=== PATIENT | male | born 1985 | race Caucasian/White ===

== ENCOUNTER 2018-01-18 21:46 | Emergency (ER) | payer SELFPAY ==
[~2018-01-18] VITALS: Ht 190.5 cm; Wt 113.4 kg
[2018-01-18 21:55] VITALS: BP 160/97
[2018-01-18] MEDS ORDERED: CEPH-264 PO (22:14)
--- NOTE | 2018-01-18 22:16 | PHYS DOC ---
Adult General Chief Complaint Chief Complaint Left arm redness [facility] HPI Upper arm redness swelling minimal tenderness size about 5 x 5 cm for 3 days Review of Systems Review of Systems Constitutional: Denies fever or chills [] Eyes: Denies change in visual acuity, redness, or eye pain [] HENT: Denies nasal congestion or sore throat [] Respiratory: Denies cough or shortness of breath [] Cardiovascular: No additional information not addressed in HPI [] GI: Denies abdominal pain, nausea, vomiting, bloody stools or diarrhea [] : Denies dysuria or hematuria [] Musculoskeletal: Denies back pain or joint pain [] Integument: Denies rash or skin lesions [] Neurologic: Denies headache, focal weakness or sensory changes [] Endocrine: Denies polyuria or polydipsia [] All other systems were reviewed and found to be within normal limits, except as documented in this note. Allergies Allergies Allergies Coded Allergies Type Severity Reaction Last Updated Verified No Known Allergies Allergy Unknown 01/18/18 Yes Physical Exam Physical Exam Constitutional: Well developed, well nourished, no acute distress, non-toxic appearance. [] HENT: Normocephalic, atraumatic, bilateral external ears normal, oropharynx moist, no oral exudates, nose normal. [] Eyes: PERRLA, EOMI, conjunctiva normal, no discharge. [] Neck: Normal range of motion, no tenderness, supple, no stridor. [] Cardiovascular:Heart rate regular rhythm, no murmur [] Lungs & Thorax: Bilateral breath sounds clear to auscultation [] Abdomen: Bowel sounds normal, soft, no tenderness, no masses, no pulsatile masses. [] Skin: 55 cm erythema tenderness on upper arm Back: No tenderness, no CVA tenderness. [] Extremities: No tenderness, no cyanosis, no clubbing, ROM intact, no edema. [] Neurologic: Alert and oriented X 3, normal motor function, normal sensory function, no focal deficits noted. [] Psychologic: Affect normal, judgement normal, mood normal. [] Current Patient Data Vital Signs Vital Signs Date Time Temp Pulse Resp B/P (MAP) Pulse Ox O2 Delivery O2 Flow Rate FiO2 01/18/18 21:55 98.0 110 20 99 Room Air EKG EKG [] Radiology/Procedures Radiology/Procedures [] Course & Med Decision Making Course & Med Decision Making Pertinent Labs and Imaging studies reviewed. (See chart for details) [] Final Impression Final Impression [] Problems: (1) Cellulitis Qualifiers: Qualified Codes: L03.114 - Cellulitis of left upper limb Dragon Disclaimer Dragon Disclaimer This electronic medical record was generated, in whole or in part, using a voice recognition dictation system. RAY FOX MD Jan 18, 2018 22:16
== END 2018-01-18 22:20 | disposition home or self-care (01) ==
LOC: ER 22:19
DX: L03.114 Cellulitis of left upper limb (principal)
CPT/HCPCS: 99283

== ENCOUNTER 2018-07-21 16:12 | Emergency (ER) | payer SELFPAY ==
[~2018-07-21] VITALS: Ht 190.5 cm; Wt 125.3 kg
[2018-07-21 16:12] VITALS: BP 153/80
[~2018-07-21 16:12] MED LIST: CEPH-264 PO
[2018-07-21] MEDS ORDERED: MELO7.5T29 PO (16:34)
[2018-07-21] MEDS ORDERED: SULF1TAB24 PO (16:34)
[2018-07-21] MEDS ORDERED: TRAM50TA PO (16:34)
--- NOTE | 2018-07-21 16:34 | PHYS DOC ---
Past History Past Medical History: No Pertinent History Past Surgical History: No Surgical History Smoking: Cigarettes Alcohol Use: None Drug Use: None Adult General Chief Complaint Chief Complaint: ABSCESS HPI HPI Patient is a 32-year-old male presents with right facial pain and swelling that has been present for approximately the past day and has been getting worse over time. No fever. No trauma. No recent changes in weight. No drainage from the area. No nausea or vomiting. Palpation makes it worse. Nothing makes it better. No home pain medicines of been taken. No previous history of this. [] Review of Systems Review of Systems Constitutional: Denies fever or chills [] Eyes: Denies change in visual acuity, redness, or eye pain [] HENT: Denies nasal congestion or sore throat [] Respiratory: Denies cough or shortness of breath [] Cardiovascular: No chest pain or palpitations[] GI: Denies abdominal pain, nausea, vomiting, bloody stools or diarrhea [] : Denies dysuria or hematuria [] Musculoskeletal: Denies back pain or joint pain [] Integument: See history of present illness. He also notes these had an area on the back of his right calf that is been present for years that has not healed well, has repeated episodes where it seems to be healing, starts itching, he scratches it gets worse.[] Neurologic: Denies headache, focal weakness or sensory changes [] Endocrine: Denies polyuria or polydipsia [] All other systems were reviewed and found to be within normal limits, except as documented in this note. Allergies Allergies Allergies Coded Allergies Type Severity Reaction Last Updated Verified No Known Allergies Allergy Unknown 01/18/18 Yes Physical Exam Physical Exam Constitutional: Well developed, well nourished, no acute distress, non-toxic appearance. [] HENT: Normocephalic, atraumatic, there is tenderness and swelling over the right face, within his jacome line. There is no palpable fluctuant abscess. There is no cutaneous abscess noted. Your canal is normal, TM is clear. Bilateral external ears normal, oropharynx moist, no oral exudates, nose normal. [] Eyes: PERRLA, EOMI, conjunctiva normal, no discharge. [] Neck: Normal range of motion, no tenderness, supple, no stridor. [] Cardiovascular:Heart rate regular rhythm, no murmur [] Lungs & Thorax: Bilateral breath sounds clear to auscultation [] Abdomen: Not examined[] Skin: Warm, dry, no erythema, no rash. Right posterior calf has a 1/2 inch diameter area of scabbing, mild erythema, no purulent drainage. [] Back: No tenderness, no CVA tenderness. [] Extremities: Other than the right calf, no tenderness, no cyanosis, no clubbing, ROM intact, no edema. [] Neurologic: Alert and oriented X 3, normal motor function, normal sensory function, no focal deficits noted. [] Psychologic: Affect normal, judgement normal, mood normal. [] EKG EKG [] Radiology/Procedures Radiology/Procedures [] Course & Med Decision Making Course & Med Decision Making Pertinent Labs and Imaging studies reviewed. (See chart for details) Medical decision making: This appears to be cellulitis, no evidence of an abscess of the face. No evidence of deeper bony infection. Right calf appears to be a poorly healing wound, possibly due to patient's tobacco use. There is no evidence of an infection. Given the length of time, doubt that this is specifically a skin cancer however that can be followed up as an outpatient. Will start patient on oral antibiotics, discussed wound care with the patient for his calf.[] Dragon Disclaimer Dragon Disclaimer This electronic medical record was generated, in whole or in part, using a voice recognition dictation system. Departure Departure: Impression: Primary Impression: Facial cellulitis Additional Impression: Calf abrasion Disposition: 01 HOME, SELF-CARE Condition: IMPROVED Referrals: PCP,NO (PCP) Patient Instructions: Cellulitis, Wound Care, Ytyl-qy-Tyab Additional Instructions: Keep the wounds clean, cover the calf wound with a dressing. Take the medication as prescribed. Follow-up with your regular doctor in 2 days. If you do not have regular doctor, a list of local clinics will be provided for you. Return to the ER if worsening pain, fever of more than 101, or any other concerns. Scripts Tramadol Hcl (TRAMADOL HCL) 50 Mg Tablet 50 MG PO PRN Q6HRS PRN for PAIN, #20 TAB Prov: LAURA SALDIVAR DO 07/21/18 Meloxicam (MELOXICAM) 7.5 Mg Tablet 7.5 MG PO DAILY for PAIN, #20 TAB Prov: LAURA SALDIVAR DO 07/21/18 Sulfamethoxazole/Trimethoprim (BACTRIM DS TABLET) 1 Each Tablet 1 TAB PO BID for skin infection, #20 TAB Prov: LAURA SALDIVAR DO 07/21/18 Problem Qualifiers Additional Impression: Calf abrasion Encounter type: initial encounter Laterality: right Qualified Codes: S80.811A - Abrasion, right lower leg, initial encounter LAURA SALDIVAR DO July 21, 2018 16:34
== END 2018-07-21 16:40 | disposition home or self-care (01) ==
LOC: ER 16:12
DX: L03.211 Cellulitis of face (principal); S80.811A Abrasion, right lower leg, initial encounter; F17.210 Nicotine dependence, cigarettes, uncomplicated; X58.XXXA Exposure to other specified factors, initial encounter; Y93.89 Activity, other specified; Y92.89 Other specified places as the place of occurrence of the external cause; Y99.8 Other external cause status
CPT/HCPCS: 99283

== ENCOUNTER 2019-05-06 04:00 | Emergency (ER) | payer SELFPAY ==
[~2019-05-06] VITALS: Ht 190.5 cm; Wt 122.5 kg
[2019-05-06 04:00] VITALS: BP 160/80
[~2019-05-06 04:00] MED LIST changes: +MELO7.5T29 PO; +SULF1TAB24 PO; +TRAM50TA PO
[2019-05-06] MEDS ORDERED: KETOROLAC 30 MG/ML VIAL. IM ONE (04:30)
[2019-05-06] MEDS ORDERED: KETOROLAC 30 MG/ML VIAL. ONE (04:34)
[2019-05-06] MEDS ORDERED: NAPR-695 PO (04:34)
[2019-05-06] MEDS ORDERED: HYDR-3165 PO (04:34)
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
== END 2019-05-06 04:46 | disposition home or self-care (01) ==
LOC: ER 04:00
DX: S63.501A Unspecified sprain of right wrist, initial encounter (principal); S60.221A Contusion of right hand, initial encounter; I10 Essential (primary) hypertension; F17.210 Nicotine dependence, cigarettes, uncomplicated; W22.8XXA Striking against or struck by other objects, initial encounter; Y93.89 Activity, other specified; Y92.89 Other specified places as the place of occurrence of the external cause; Y99.8 Other external cause status
CPT/HCPCS: 29125; 73110; 96372; 99283; J1885

== ENCOUNTER 2019-08-25 23:01 | Emergency (ER) | payer SELFPAY ==
[~2019-08-25] VITALS: Ht 190.5 cm; Wt 125.0 kg
[~2019-08-25 23:01] MED LIST changes: +HYDR-3165 PO; +NAPR-695 PO
[2019-08-25 23:17] VITALS: BP 165/96
[2019-08-26] MEDS ORDERED: CEPH-264 PO (00:13)
[2019-08-26] MEDS ORDERED: TRIA15OI TP (00:13)
--- NOTE | 2019-08-26 00:13 | PHYS DOC ---
Past History Past Medical History: Hypertension Past Surgical History: No Surgical History Smoking: Cigarettes Alcohol Use: None Drug Use: None General Adult EDM: Chief Complaint: KNEE SWELLING HPI: HPI: 33-year-old male presents with swollen left knee. The patient noticed yesterday that the knee looked swollen. It is now hot to the touch over the patella. He has had cellulitis in other areas a couple of times. He just wants to make sure he does not have an infected joint. He is able to walk but it is mildly painful. Denies fever chills. Review of Systems: Review of Systems: Constitutional: Denies fever or chills Eyes: Denies change in visual acuity HENT: Denies nasal congestion or sore throat Respiratory: Denies cough or shortness of breath Cardiovascular: Denies chest pain or edema GI: Denies abdominal pain, nausea, vomiting, bloody stools or diarrhea : Denies dysuria Musculoskeletal: Left knee pain Integument: Denies rash Neurologic: Denies headache, focal weakness or sensory changes Endocrine: Denies polyuria or polydipsia Lymphatic: Denies swollen glands Psychiatric: Denies depression or anxiety Heart Score: Risk Factors: Risk Factors: DM, Current or recent (<one month) smoker, HTN, HLP, family history of CAD, obesity. Risk Scores: Score 0 - 3: 2.5% MACE over next 6 weeks - Discharge Home Score 4 - 6: 20.3% MACE over next 6 weeks - Admit for Clinical Observation Score 7 - 10: 72.7% MACE over next 6 weeks - Early Invasive Strategies Allergies: Allergies: Allergies Coded Allergies Type Severity Reaction Last Updated Verified No Known Allergies Allergy Unknown 01/18/18 Yes Physical Exam: PE: Constitutional: Well developed, well nourished, no acute distress, non-toxic appearance. [] HENT: Normocephalic, atraumatic, bilateral external ears normal, oropharynx moist, no oral exudates, nose normal. [] Eyes: PERRLA, EOMI, conjunctiva normal, no discharge. [] Neck: Normal range of motion, no tenderness, supple, no stridor. [] Cardiovascular:Heart rate regular rhythm, no murmur [] Lungs & Thorax: Bilateral breath sounds clear to auscultation [] Abdomen: Bowel sounds normal, soft, no tenderness, no masses, no pulsatile masses. [] Skin: Warm, erythematous left knee over the patella [] Back: No tenderness, no CVA tenderness. [] Extremities: Tenderness over the left patella, mild swelling [] Neurologic: Alert and oriented X 3, normal motor function, normal sensory function, no focal deficits noted. [] Psychologic: Affect normal, judgement normal, mood normal. [] Current Patient Data: Vital Signs: Vital Signs Date Time Temp Pulse Resp B/P (MAP) Pulse Ox O2 Delivery O2 Flow Rate FiO2 08/25/19 23:17 97.2 109 18 165/96 (119) 98 Room Air EKG: EKG: [] Radiology/Procedures: Radiology/Procedures: [] Course & Med Decision Making: Course & Med Decision Making Pertinent Labs and Imaging studies reviewed. (See chart for details) I did attempt needle aspiration of the left knee. I made 2 attempts. I got a small amount of serosanguineous fluid. I sent it for culture, but I am not sure if it is enough for Gram stain and culture. I do not believe cell count will be helpful. It seems more likely that this is a superficial cellulitis of the skin around the patella. I will treat him with Keflex for 7 days. We will give the first dose in the ED. He is stable for discharge at this time. [] Alis Disclaimer: Alis Disclaimer: This electronic medical record was generated, in whole or in part, using a voice recognition dictation system. Departure Departure: Impression: Primary Impression: Cellulitis of left knee Disposition: HOME/RESIDENCE PRIOR TO ADM Condition: STABLE Referrals: PCP,NO (PCP) Patient Instructions: Cellulitis, Jhio-nz-Lree Scripts Triamcinolone Acetonide (TRIAMCINOLONE ACETONIDE 0.1% OINT) 15 Gm Oint...g. 1 ARNEL TP BID for rash right leg, #1 TUBE Prov: CHANCE NEWMAN DO 08/26/19 Cephalexin (KEFLEX) 500 Mg Capsule 1 CAP PO TID for cellulitis for 7 Days, #21 CAP 0 Refills Prov: CHANCE NEWMAN DO 08/26/19 Justification of Admission: Justification of Admission: Justification of Admission Dx: N/A CHANCE NEWMAN DO Aug 26, 2019 00:13
[2019-08-26] MEDS ORDERED: CEPHALEXIN 250 MG CAPSULE PO ONE (00:30)
== END 2019-08-26 00:20 | disposition home or self-care (01) ==
LOC: ER 23:01
DX: L03.116 Cellulitis of left lower limb (principal); R60.0 Localized edema; L53.9 Erythematous condition, unspecified; I10 Essential (primary) hypertension; F17.210 Nicotine dependence, cigarettes, uncomplicated
CPT/HCPCS: 87071; 87075; 99283

== ENCOUNTER 2021-01-05 16:59 | Emergency (ER) | payer SELFPAY ==
[~2021-01-05] VITALS: Ht 190.5 cm; Wt 125.0 kg
[~2021-01-05 16:59] MED LIST changes: +TRIA15OI32 TP
[2021-01-05] MEDS ORDERED: KETOROLAC 60 MG/2 ML VIAL. IM ONE (17:30)
--- NOTE | 2021-01-05 17:38 | RAD ---
Exam: Left wrist 3 views. Left forearm 2 views INDICATION: Fall TECHNIQUE: Frontal, lateral and oblique views of the left wrist. Frontal, and lateral views of the le ft forearm Comparisons: None FINDINGS: Wrist: Bone mineralization is normal. No acute or healed fractures. Soft tissues are unremarkable. Joint spa harris are well-maintained. Forearm: Bone mineralization is normal. No acute or healed fractures. Soft tissues are unremarkable. Joint spa harris are well-maintained. IMPRESSION: No acute osseous abnormality of the left wrist or left forearm Electronically signed by: Helena Horton MD (01/05/2021 5:36 PM) JD
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
[2021-01-05] MEDS ORDERED: TRAM50TA PO (18:04)
[2021-01-05] MEDS ORDERED: START PACK - traMADol 1 STARTPACK TABLET PO ONE (18:15)
[2021-01-05] MEDS ORDERED: traMADol 50 MG TABLET PO ONE (18:15)
--- NOTE | 2021-01-05 18:19 | RAD ---
Exam: Left hand 3 views INDICATION: Fall onto outstretched wrist TECHNIQUE: Frontal, lateral and oblique views of the left wrist Comparisons: None FINDINGS: Diffuse soft tissue swelling overlying the metacarpals. Bone mineralization is normal. No acute or he aled fractures. Joint spaces are well-maintained. IMPRESSION: Diffuse soft tissue swelling overlying the metacarpals without underlying osseous abnormality identif ied. Electronically signed by: Helena Horton MD (01/05/2021 6:16 PM) JD
[2021-01-05 18:28] VITALS: BP 132/49
== END 2021-01-05 18:30 | disposition home or self-care (01) ==
LOC: ER 16:59
DX: S60.212A Contusion of left wrist, initial encounter (principal); I10 Essential (primary) hypertension; F17.210 Nicotine dependence, cigarettes, uncomplicated; W07.XXXA Fall from chair, initial encounter; Y93.89 Activity, other specified; Y92.89 Other specified places as the place of occurrence of the external cause; Y99.8 Other external cause status
CPT/HCPCS: 29125; 73090; 73110; 73130; 96372; 99284; J1885